=== PATIENT | female | born 1975 | race Native Hawaiian/Other Pacific Islander ===

== ENCOUNTER 2021-10-04 03:01 | Emergency (ER) | payer SELFPAY ==
[~2021-10-04] VITALS: Ht 152.4 cm; Wt 71.4 kg
[~2021-10-04 03:01] MED LIST: CYMBALTA PO; LEXAPRO 10MG10 MG PO; LORTAB 5/500 501 TAB PO
[2021-10-04 03:08] VITALS: TEMP 98
[2021-10-04] MEDS ORDERED: FLEXERIL 1010 MG/TAB PO (03:29)
[2021-10-04] MEDS ORDERED: NAPROSYN500 MG PO (03:29)
[2021-10-04 04:13] VITALS: BP 162/83; PULSE 83
== END 2021-10-04 04:13 | disposition home or self-care (01) ==
LOC: COL.ER 03:01
DX: S39.012A Strain of muscle, fascia and tendon of lower back, initial encounter (principal); Z87.891 Personal history of nicotine dependence; Z28.310 Unvaccinated for COVID-19; W10.9XXA Fall (on) (from) unspecified stairs and steps, initial encounter